=== PATIENT | female | born 2005 | race American Indian/Alaskan Native ===

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

== ENCOUNTER 2023-04-16 11:17 | Emergency (ER) | payer OTHER ==
[~2023-04-16] VITALS: Ht 160 cm; Wt 84.1 kg
[2023-04-16 12:14] LABS: INFLUENZA B NAA NEGATIVE (NEGATIVE); RESPIRATORY SYNCYTIAL VIR NAA NEGATIVE (NEGATIVE)
[2023-04-16 13:17] VITALS: BP 118/86
--- NOTE | 2023-04-17 06:32 | EKG ---
[facility] [address] [place] [address] Signed Normal sinus rhythm Normal ECG When compared with ECG of 25-OCT-2022 20:15, No significant change was found Confirmed by EDINSON ABEL MD ([id number]) on 04/17/2023 6:32:27 AM Electronically Signed By: EDINSON ABEL 04/17/23 0632 PATIENT NAME: CLAUDETTE MILLAN JARRET Electrocardiogram DATE OF : [birth year] PHYSICIAN: EDINSON ABEL REPORT #: [id number] REPORT IS CONFIDENTIAL AND NOT TO BE RELEASED WITHOUT AUTHORIZATION
== END 2023-04-16 13:19 | disposition home or self-care (01) ==
LOC: ED 11:17
PROVIDERS: Emergency Medicine
DX: J06.9 Acute upper respiratory infection, unspecified (principal); R09.1 Pleurisy; Z88.0 Allergy status to penicillin; Z91.018 Allergy to other foods
CPT/HCPCS: 71046; 87502; 93005; 93010; A9270; C9803; J1885; U0002

== ENCOUNTER 2023-09-20 14:05 | Emergency (ER) | payer BC, OTHER ==
[~2023-09-20] VITALS: Ht 160 cm; Wt 80.5 kg
[~2023-09-20 14:05] MED LIST changes: +EPIN0.3P IM; +PSEUDOEPHEDRINE60 MG PO
[2023-09-20 15:16] VITALS: BP 115/59
== END 2023-09-20 15:16 | disposition home or self-care (01) ==
LOC: ED 14:05
DX: S09.90XA Unspecified injury of head, initial encounter (principal); W22.8XXA Striking against or struck by other objects, initial encounter; Z88.0 Allergy status to penicillin; Z91.030 Bee allergy status; Z91.018 Allergy to other foods
CPT/HCPCS: 70450; 99283-25

== ENCOUNTER 2023-12-02 09:11 | Emergency (ER) | payer BC, OTHER ==
[~2023-12-02] VITALS: Ht 160 cm; Wt 72.3 kg
[2023-12-02] MEDS ORDERED: ondansetron HCL 4 MG/2 ML VIAL IV PRN (09:30)
[2023-12-02] MEDS ORDERED: KETOROLAC TROMETHAMINE 15 MG/ML VIAL IV ONE (09:30)
[2023-12-02 09:33] LABS: BASOPHILS 0.8 % (0-2); EOSINOPHILS 1.9 % (0-6); HEMATOCRIT 46.1 % (35.0-50.0); LYMPHOCYTES 42.1 % (24-44); MCH 30.4 (27-36); MCHC 34.8 g/dl (30-36); MCV 87.5 fl (81-99); MONOCYTES 7.2 % (0-12); PLATELET COUNT 341 K/uL (140-440); RBC 5.27 M/ul (4.3-5.7); RDW 13.6 (10.5-15.0)
[2023-12-02 09:48] LABS: ALBUMIN 3.8 g/dL (3.4-5.0); ALBUMIN/GLOBULIN RATIO 1.06 (1.1-2.4); ANION GAP 11.7 (7-21); BILIRUBIN, TOTAL 0.5 ng/dL (0.2-1.0); CALCIUM 9.1 mg/dL (8.5-10.1); POTASSIUM 3.7 mmol/L (3.5-5.1); PROTEIN, TOTAL 7.4 g/dL (6.4-8.2)
[2023-12-02 10:34] LABS: BILIRUBIN, URINE NEGATIVE (negative); BLOOD/HGB, URINE NEGATIVE (Negative); KETONE, URINE NEGATIVE (Negative); LEUK ESTERASE, URINE NEGATIVE (negative); NITRITE, URINE NEGATIVE (negative)
[2023-12-02 11:06] VITALS: BP 123/90
== END 2023-12-02 11:07 | disposition home or self-care (01) ==
LOC: ED 09:11
PROVIDERS: Emergency Medicine
DX: R10.31 Right lower quadrant pain (principal); Z88.0 Allergy status to penicillin; Z91.018 Allergy to other foods; Z91.030 Bee allergy status
CPT/HCPCS: 36415; 80053; 81003; 84703; 85025; 96374; 96375; 99284-25; J1885; J2405

== ENCOUNTER 2024-05-15 11:11 | Emergency (ER) | payer BC, OTHER ==
[~2024-05-15] VITALS: Ht 160 cm; Wt 65.3 kg
[~2024-05-15 11:11] MED LIST changes: +ONDANSETRON HCL4 MG PO; +VENTOLIN HFA18 GM INH
[2024-05-15] MEDS ORDERED: ONDANSETRON HCL4 MG PO (11:25)
[2024-05-15 11:58] LABS: SOURCE, WET MOUNT VAGINAL
[2024-05-15 11:59] LABS: BACTERIA, WET MOUNT 1+ (NEGATIVE); CLUE CELLS, WET MOUNT NEGATIVE (NEGATIVE); EPITHELIAL CELLS, WET MOUNT 2+ (NEGATIVE); RBC, WET MOUNT 2+ (NEGATIVE); WBC, WET MOUNT 1+ (NEGATIVE); YEAST, WET MOUNT NEGATIVE (NEGATIVE)
[2024-05-15 12:00] LABS: TRICHOMONAS, WET MOUNT NEGATIVE (NEGATIVE)
[2024-05-15 12:39] LABS: BILIRUBIN, URINE NEGATIVE (negative); BLOOD/HGB, URINE MODERATE (Negative); KETONE, URINE SMALL (Negative); LEUK ESTERASE, URINE NEGATIVE (negative); NITRITE, URINE NEGATIVE (negative); PH, URINE 8.5 (5-7)
[2024-05-15 12:44] LABS: EPITHELIAL CELLS, URINE SQUAMOUS 3+ /lpf (0-1+)
[2024-05-15 12:45] LABS: BACTERIA, URINE RARE /hpf (negative); CASTS, URINE NONE SEEN \\lpf; COLLECTION TYPE, URINE CLEAN CATCH; CRYSTALS, URINE NONE SEEN (0-1+); REFLEX CULTURE, URINE No (No)
[2024-05-15 13:21] LABS: N. GONORRRHOEAE BY PCR NOT DETECTED (NOT DETECT)
[2024-05-15 13:28] VITALS: BP 119/85
== END 2024-05-15 13:28 | disposition home or self-care (01) ==
LOC: ED 11:11
PROVIDERS: Internal Medicine
DX: N83.202 Unspecified ovarian cyst, left side (principal); J45.909 Unspecified asthma, uncomplicated; Z88.0 Allergy status to penicillin; Z91.030 Bee allergy status; Z91.018 Allergy to other foods; Z79.899 Other long term (current) drug therapy
CPT/HCPCS: 76830; 76856; 81001; 84703; 87210; 99284-25

== ENCOUNTER 2024-05-17 10:22 | Emergency (ER) | payer BC, OTHER ==
[~2024-05-17] VITALS: Ht 160 cm; Wt 64.9 kg
[2024-05-17] MEDS ORDERED: KETOROLAC TROMETHAMINE 15 MG/ML VIAL IV ONE (11:00)
[2024-05-17] MEDS ORDERED: HYDROmorphone HCL 1 MG/ML SYR IV PRN (11:00)
[2024-05-17] MEDS ORDERED: SODIUM CHLORIDE 0.9% 1,000 ML IV ONE (11:00)
[2024-05-17] MEDS ORDERED: ondansetron HCL 4 MG/2 ML VIAL IV ONE (11:00)
[2024-05-17 11:14] LABS: BASOPHILS 0.9 % (0-2); EOSINOPHILS 1.8 % (0-6); HEMATOCRIT 46.8 % (35.0-50.0); HEMOGLOBIN 16.4 g/dL (12.0-18.0); LYMPHOCYTES 35.8 % (24-44); MCH 31.3 (27-36); MCV 89.3 fl (81-99); NEUTROPHILS 54.5 % (39-80); PLATELET COUNT 326 K/uL (140-440); RBC 5.24 M/ul (4.3-5.7); RDW 12.8 (10.5-15.0)
[2024-05-17] MEDS ORDERED: ONDANSETRON ODT8 MG PO (11:27)
[2024-05-17] MEDS ORDERED: HYDROCODON-ACE1 EA10 PO (11:27)
[2024-05-17 11:52] VITALS: BP 140/89
== END 2024-05-17 11:53 | disposition home or self-care (01) ==
LOC: ED 10:22
PROVIDERS: Emergency Medicine
DX: N83.202 Unspecified ovarian cyst, left side (principal); J45.909 Unspecified asthma, uncomplicated; Z88.0 Allergy status to penicillin; Z91.030 Bee allergy status; Z91.018 Allergy to other foods; Z79.899 Other long term (current) drug therapy
CPT/HCPCS: 36415; 85025; 96361; 96374; 96375; 99284-25; J1171; J1885; J2405; J7030

== ENCOUNTER 2024-06-15 14:21 | Emergency (ER) | payer BC, OTHER ==
[~2024-06-15] VITALS: Ht 160 cm; Wt 61.7 kg
[~2024-06-15 14:21] MED LIST changes: +HYDROCODON-ACE1 EA10 PO; +ONDANSETRON ODT8 MG PO
[2024-06-15] MEDS ORDERED: SODIUM CHLORIDE 0.9% 1,000 ML IV PRN (15:00)
[2024-06-15 15:09] LABS: BASOPHILS 1.3 % (0-2); EOSINOPHILS 2.9 % (0-6); HEMATOCRIT 44.5 % (35.0-50.0); HEMOGLOBIN 15.5 g/dL (12.0-18.0); LYMPHOCYTES 49.3 % (24-44); MCH 31.2 (27-36); MCHC 34.9 g/dl (30-36); MCV 89.5 fl (81-99); MONOCYTES 6.1 % (0-12); NEUTROPHILS 40.4 % (39-80); PLATELET COUNT 294 K/uL (140-440); RBC 4.97 M/ul (4.3-5.7)
[2024-06-15 15:25] LABS: ALBUMIN 4.4 g/dL (3.4-5.0); ALBUMIN/GLOBULIN RATIO 1.26 (1.1-2.4); BILIRUBIN, TOTAL 0.9 mg/dL (0.2-1.0); BUN/CREATININE RATIO 15.29 (6.0-28.6); CALCIUM 9.9 mg/dL (8.5-10.1); CREATININE, SERUM 0.85 mg/dL (0.55-1.02); PROTEIN, TOTAL 7.9 g/dL (6.4-8.2)
[2024-06-15 17:03] VITALS: BP 128/84
--- NOTE | 2024-06-15 22:28 | EKG ---
[facility] [address] [place] [address] Signed Sinus bradycardia with sinus arrhythmia Otherwise normal ECG When compared with ECG of 21-JAN-2024 18:31, Nonspecific T wave abnormality no longer evident in Anterior leads Confirmed by Rose Bah MD () on 06/15/2024 10:27:54 PM Electronically Signed By: ROSE BAH MD 06/15/24 2228 PATIENT NAME: EVER MILLANTRAEJose JARRET Electrocardiogram DATE OF : [birth year] PHYSICIAN: ROSE BAH MD REPORT #: [id number] REPORT IS CONFIDENTIAL AND NOT TO BE RELEASED WITHOUT AUTHORIZATION
== END 2024-06-15 17:00 | disposition home or self-care (01) ==
LOC: ED 14:21
PROVIDERS: Emergency Medicine
DX: R55 Syncope and collapse (principal); R07.9 Chest pain, unspecified; J45.909 Unspecified asthma, uncomplicated; Z88.0 Allergy status to penicillin; Z91.030 Bee allergy status; Z91.018 Allergy to other foods; Z79.899 Other long term (current) drug therapy
CPT/HCPCS: 36415; 71046; 80053; 84484; 84703; 85025; 93005; 93010; 96360; 99285-25; J7030

== ENCOUNTER 2024-07-19 13:56 | Emergency (ER) | payer BC, OTHER ==
[~2024-07-19] VITALS: Ht 160 cm; Wt 61.1 kg
[2024-07-19] MEDS ORDERED: ondansetron HCL 4 MG/2 ML VIAL IV ONE (16:00)
[2024-07-19] MEDS ORDERED: SODIUM CHLORIDE 0.9% 1,000 ML IV PRN (16:05)
[2024-07-19 16:12] LABS: BASOPHILS 0.9 % (0-2); BILIRUBIN, URINE NEGATIVE (negative); BLOOD/HGB, URINE MODERATE (Negative); EOSINOPHILS 1.9 % (0-6); HEMATOCRIT 43.3 % (35.0-50.0); KETONE, URINE NEGATIVE (Negative); LEUK ESTERASE, URINE NEGATIVE (negative); LYMPHOCYTES 32.5 % (24-44); MCH 30.7 (27-36); MCHC 34.7 g/dl (30-36); MCV 88.4 fl (81-99); MONOCYTES 7.9 % (0-12); NEUTROPHILS 56.8 % (39-80); NITRITE, URINE POSITIVE (negative); PH, URINE 7.5 (5-7); PLATELET COUNT 326 K/uL (140-440)
[2024-07-19 16:25] LABS: RED BLOOD CELLS, URINE 0-1 /hpf (0-5)
[2024-07-19 16:26] LABS: BACTERIA, URINE 4+ /hpf (negative); CASTS, URINE NONE SEEN \\lpf; COLLECTION TYPE, URINE CLEAN CATCH; CRYSTALS, URINE AMORPHOUS PHOSPH 2+ (0-1+); REFLEX CULTURE, URINE Yes (No)
[2024-07-19 16:31] LABS: ALBUMIN 4.3 g/dL (3.4-5.0); ALBUMIN/GLOBULIN RATIO 1.3 (1.1-2.4); ANION GAP 13.9 (7-21); BILIRUBIN, TOTAL 1.1 mg/dL (0.2-1.0); BUN/CREATININE RATIO 11.11 (6.0-28.6); CALCIUM 9.4 mg/dL (8.5-10.1); CREATININE, SERUM 0.81 mg/dL (0.55-1.02); POTASSIUM 3.9 mmol/L (3.5-5.1); PROTEIN, TOTAL 7.6 g/dL (6.4-8.2)
[2024-07-19] MEDS ORDERED: CEFTRIAXONE SODIUM 1 GM VIAL IV ONE (16:32)
[2024-07-19] MEDS ORDERED: HYDROmorphone HCL 1 MG/ML SYR IV ONE (16:45)
[2024-07-19] MEDS ORDERED: CEFTRIAXONE SODIUM 1 GM in SODIUM CHLORIDE 0.9% 100 ML IV ONE (16:45)
[2024-07-19] MEDS ORDERED: fentaNYL citrate 100 MCG/2 ML VIAL IV ONE ×2 (17:30→20:00)
[2024-07-19 18:09] LABS: N. GONORRRHOEAE BY PCR NOT DETECTED (NOT DETECT)
[2024-07-19] MEDS ORDERED: CEPHALEXIN500 M1 PO (21:05)
[2024-07-19 21:39] VITALS: BP 113/84
== END 2024-07-19 21:32 | disposition home or self-care (01) ==
LOC: ED 13:56
PROVIDERS: Emergency Medicine
DX: N12 Tubulo-interstitial nephritis, not specified as acute or chronic (principal); J45.909 Unspecified asthma, uncomplicated; Z88.0 Allergy status to penicillin; Z88.1 Allergy status to other antibiotic agents; Z88.8 Allergy status to other drugs, medicaments and biological substances; Z91.030 Bee allergy status; Z91.018 Allergy to other foods; Z79.899 Other long term (current) drug therapy
CPT/HCPCS: 36415; 74177; 76830; 76856; 80053; 81001; 83690; 84703; 85025; 87077; 87088; 87186; 96375; 96376; 99284-25; J0696; J1171; J2405; J3010; Q9967

== ENCOUNTER 2024-08-08 13:01 | Emergency (ER) | payer BC, OTHER ==
[~2024-08-08] VITALS: Ht 160 cm; Wt 61.1 kg
[~2024-08-08 13:01] MED LIST changes: +CEPHALEXIN500 M1 PO
[2024-08-08 14:20] VITALS: BP 99/61
== END 2024-08-08 14:20 | disposition home or self-care (01) ==
LOC: ED 13:01
DX: S63.511A Sprain of carpal joint of right wrist, initial encounter (principal); X58.XXXA Exposure to other specified factors, initial encounter; J45.909 Unspecified asthma, uncomplicated; Z88.5 Allergy status to narcotic agent; Z88.2 Allergy status to sulfonamides; Z91.038 Other insect allergy status; Z91.018 Allergy to other foods
CPT/HCPCS: 73110; 99283

== ENCOUNTER 2024-09-16 18:06 | Emergency (ER) | payer BC, OTHER ==
[~2024-09-16] VITALS: Ht 160 cm; Wt 61.1 kg
[2024-09-16] MEDS ORDERED: IBLOOD GLUCOSE TEST STRIP 1 EA TEST XX ONE (18:15)
[2024-09-16 18:33] LABS: BASOPHILS 0.6 % (0.1-1.2); EOSINOPHILS 0.5 % (0.7-5.8); HEMATOCRIT 41.6 % (34.1-44.9); HEMOGLOBIN 14.5 g/dL (11.2-15.7); MCH 30.9 PG (25.6-32.2); MCHC 34.9 g/dL (32.2-35.5); MCV 88.5 fL (79.4-94.8); MONOCYTES 6.5 % (4.7-12.5); NEUTROPHILS 63.1 % (34.0-71.1); PLATELET COUNT 304 K/uL (182-369)
[2024-09-16 18:52] LABS: ALBUMIN 4.4 g/dL (3.4-5.0); ALBUMIN/GLOBULIN RATIO 1.47 (1.1-2.4); ALKALINE PHOSPHATASE 69 U/L (46-116); ALT (SGPT) 17 U/L (14-59); ANION GAP 14.8 (7-21); AST (SGOT) 12 U/L (15-37); BILIRUBIN, TOTAL 0.9 mg/dL (0.2-1.0); CALCIUM 9.4 mg/dL (8.5-10.1); CARBON DIOXIDE 23 mmol/L (21-32); CHLORIDE 104 mmol/L (98-107); CREATININE, SERUM 1.12 mg/dL (0.55-1.02); GLOMERULAR FILTRATION RATE,EST 72 mL/min (>60); MAGNESIUM 1.9 mg/dL (1.8-2.4); POTASSIUM 2.8 mmol/L (3.5-5.1); PROTEIN, TOTAL 7.4 g/dL (6.4-8.2); UREA NITROGEN 13 mg/dL (7-18)
[2024-09-16 20:06] LABS: BILIRUBIN, URINE NEGATIVE (negative); BLOOD/HGB, URINE TRACE-L (Negative); KETONE, URINE NEGATIVE (Negative); LEUK ESTERASE, URINE NEGATIVE (negative); NITRITE, URINE NEGATIVE (negative)
[2024-09-16 20:11] LABS: BACTERIA, URINE RARE /hpf (negative); CASTS, URINE NONE SEEN \\lpf; COLLECTION TYPE, URINE CLEAN CATCH; CRYSTALS, URINE NONE SEEN (0-1+); EPITHELIAL CELLS, URINE SQUAMOUS 1+ /lpf (0-1+); RED BLOOD CELLS, URINE 0-1 /hpf (0-5); REFLEX CULTURE, URINE No (No); WHITE BLOOD CELLS, URINE 0-1 /HPF (0-5)
[2024-09-16] MEDS ORDERED: KETOROLAC TROMETHAMINE 30 MG/ML VIAL IV ONE (20:15)
[2024-09-16] MEDS ORDERED: ondansetron HCL 4 MG/2 ML VIAL IV ONE (20:15)
[2024-09-16] MEDS ORDERED: POTASSIUM CHLORIDE 10 MEQ TABCR PO ONE (20:15)
[2024-09-16 21:40] VITALS: BP 127/71
--- NOTE | 2024-09-17 20:22 | EKG ---
[facility] [address] [place] [address] Signed Normal sinus rhythm Normal ECG No previous ECGs available Confirmed by Zoe Newman DO ([id number]) on 09/17/2024 8:22:39 PM Electronically Signed By: ZOE NEWMAN DO 09/17/242021 PATIENT NAME: CLAUDETTE MILLAN Electrocardiogram DATE OF : [birth year] PHYSICIAN: ZOE NEWMAN DO REPORT #: [id number] REPORT IS CONFIDENTIAL AND NOT TO BE RELEASED WITHOUT AUTHORIZATION
== END 2024-09-16 21:42 | disposition home or self-care (01) ==
LOC: ED 18:06
PROVIDERS: Emergency Medicine; Internal Medicine
DX: R55 Syncope and collapse (principal); N94.6 Dysmenorrhea, unspecified; F43.10 Post-traumatic stress disorder, unspecified; J45.909 Unspecified asthma, uncomplicated; Z88.0 Allergy status to penicillin; Z88.8 Allergy status to other drugs, medicaments and biological substances; Z88.5 Allergy status to narcotic agent; Z91.010 Allergy to peanuts; Z91.030 Bee allergy status; Z79.899 Other long term (current) drug therapy
CPT/HCPCS: 36415; 76830; 76856; 80053; 81001; 83735; 84484; 84703; 85025; 93005; 93010; 96374; 96375; 99284-25; A9270; J1885; J2405